=== PATIENT | male | born 1985 ===

== ENCOUNTER 2021-03-25 14:13 | Emergency (ER) | payer MEDICAID ==
[2021-03-25] MEDS ORDERED: Sodium Chloride 0.9% 10 ML Syringe FLUSH PRN (14:14)
[2021-03-25] MEDS ORDERED: Sodium Chloride 0.9% 2.5 ML Syringe FLUSH PRN (14:14)
--- NOTE | 2021-03-25 14:17 | EDM.PDOC ---
ED HPI GENERAL MEDICAL PROBLEM - General Time Seen by Provider: 03/25/21 14:14 - History of Present Illness INITIAL COMMENTS - FREE TEXT/NARRATIVE: Unknown male found down by PD. No ID or other information is known. Pt was found unresponsive with agonal respirations but a pulse by EMS. PT was given 4 IN narcan and 2 IV narcan with no response. Patient was then intubated he was given 250 of ketamine and 100 mg of rocuronium by EMS. On arrival he remains unresponsive. Further history unavailable. ED ROS GENERAL - Review of Systems Review Of Systems: Unable To Obtain Reason Not Obtained: Unresponsive ED EXAM, GENERAL - Physical Exam Exam: See Below Free Text/Narrative:: General Appearance: Intubated Skin: No rash HEENT: Normocephalic/atraumatic, sclera anicteric, mucous membranes moist, pupils midrange Neck: Normal range of motion Chest and Lungs: Bilateral breath sounds, clear to auscultation with bagging, old appearing contusion in the right upper parasternal region Cardiovascular: Mildly tachycardic rate and regular rhythm, no murmur Abdomen: Soft, non-tender Musculoskeletal: No edema or tenderness Neurologic: Unresponsive. However, patient already has rocuronium on board Psychiatric: Appropriate, cooperative #1 Interpretation EKG Date: 03/25/21 Time: 14:32 EKG Interpretation Comments: Sinus tachycardia rate of 128 with occasional PVC otherwise unremarkable no acute ischemia unremarkable intervals QRS duration 83 QTC duration 450 Course - Orders/Labs/Meds Orders: Active Orders 24 hr Category Date Time Status Cervical Spine wo Cont [CT] Stat Exams 03/25/21 14:35 Taken Head wo Cont [CT] Stat Exams 03/25/21 14:21 Taken BLOOD GAS ARTERIAL [BG] Stat Lab 03/25/21 14:15 Ordered Sodium Chloride 0.9% [Saline Flush] Med 03/25/21 14:14 Active 10 ml FLUSH ASDIRECTED PRN Sodium Chloride 0.9% [Saline Flush] Med 03/25/21 14:14 Active 2.5 ml FLUSH ASDIRECTED PRN Saline Lock Insert [OM.PC] Stat Oth 03/25/21 14:14 Ordered Medication Orders Sodium Chloride (Sodium Chloride 0.9% 10 Ml Syringe) 10 ml FLUSH ASDIRECTED PRN PRN Reason: Keep Vein Open Sodium Chloride (Sodium Chloride 0.9% 2.5 Ml Syringe) 2.5 ml FLUSH ASDIRECTED PRN PRN Reason: Keep Vein Open Labs: Laboratory Tests 03/25/21 03/25/21 03/25/21 Range/Units 14:10 14:10 14:10 WBC 9.01 (4.0-11.0) K/uL RBC 5.21 (4.50-5.90) M/uL Hgb 11.0 L (13.0-17.0) g/dL Hct 36.2 L (38.0-50.0) % MCV 69.5 L (80.0-98.0) fL MCH 21.1 L (27.0-32.0) pg MCHC 30.4 L (31.0-37.0) g/dL RDW Std Deviation 49.2 (28.0-62.0) fl RDW Coeff of Amee 22 H (11.0-15.0) % Plt Count 254 (150-400) K/uL Neut % (Auto) 64.2 (48.0-80.0) % Lymph % (Auto) 28.1 (16.0-40.0) % [place] % (Auto) 6.0 (0.0-15.0) % Eos % (Auto) 1.1 (0.0-7.0) % Baso % (Auto) 0.6 (0.0-1.5) % Neut # (Auto) 5.8 H (1.4-5.7) K/uL Lymph # (Auto) 2.5 H (0.6-2.4) K/uL [place] # (Auto) 0.5 (0.0-0.8) K/uL Eos # (Auto) 0.1 (0.0-0.7) K/uL Baso # (Auto) 0.1 (0.0-0.1) K/uL Nucleated RBC % 0.0 /100WBC Nucleated RBCs # 0 K/uL Lactate 2.1 H* (0.20-2.00) mmol/L Sodium 144 (136-148) mmol/L Potassium 4.0 (3.5-5.1) mmol/L Chloride 107 (98-107) mmol/L Carbon Dioxide 28.7 (21.0-32.0) mmol/L BUN 9 (7.0-18.0) mg/dL Creatinine 0.9 (0.8-1.3) mg/dL Est Cr Clr Drug Dosing TNP Estimated GFR (MDRD) > 60.0 ml/min Glucose 76 (74-106) mg/dL Calcium 7.6 L (8.5-10.1) mg/dL Magnesium 1.9 (1.8-2.4) mg/dL Total Bilirubin 0.6 (0.2-1.0) mg/dL AST 58 H (15-37) IU/L ALT 33 (14-63) IU/L Alkaline Phosphatase 75 (46-116) U/L Creatine Kinase 707 H (26-308) U/L Troponin I < 0.050 (0.000-0.056) ng/mL Total Protein 6.7 (6.4-8.2) g/dL Albumin 2.8 L (3.4-5.0) g/dL Globulin 3.9 (2.6-4.0) g/dL Albumin/Globulin Ratio 0.7 L (0.9-1.6) Urine Opiates Screen (NEGATIVE) Ur Oxycodone Screen (NEGATIVE) Urine Methadone Screen (NEGATIVE) Ur Barbiturates Screen (NEGATIVE) Ur Phencyclidine Scrn (NEGATIVE) Ur Amphetamine Screen (NEGATIVE) U Methamphetamines Scrn (NEGATIVE) U Benzodiazepines Scrn (NEGATIVE) U Cocaine Metab Screen (NEGATIVE) U Marijuana (THC) Screen (NEGATIVE) Ethyl Alcohol 269 mg/dL 03/25/21 Range/Units 14:14 WBC (4.0-11.0) K/uL RBC (4.50-5.90) M/uL Hgb (13.0-17.0) g/dL Hct (38.0-50.0) % MCV (80.0-98.0) fL MCH (27.0-32.0) pg MCHC (31.0-37.0) g/dL RDW Std Deviation (28.0-62.0) fl RDW Coeff of Amee (11.0-15.0) % Plt Count (150-400) K/uL Neut % (Auto) (48.0-80.0) % Lymph % (Auto) (16.0-40.0) % [place] % (Auto) (0.0-15.0) % Eos % (Auto) (0.0-7.0) % Baso % (Auto) (0.0-1.5) % Neut # (Auto) (1.4-5.7) K/uL Lymph # (Auto) (0.6-2.4) K/uL [place] # (Auto) (0.0-0.8) K/uL Eos # (Auto) (0.0-0.7) K/uL Baso # (Auto) (0.0-0.1) K/uL Nucleated RBC % /100WBC Nucleated RBCs # K/uL Lactate (0.20-2.00) mmol/L Sodium (136-148) mmol/L Potassium (3.5-5.1) mmol/L Chloride (98-107) mmol/L Carbon Dioxide (21.0-32.0) mmol/L BUN (7.0-18.0) mg/dL Creatinine (0.8-1.3) mg/dL Est Cr Clr Drug Dosing Estimated GFR (MDRD) ml/min Glucose (74-106) mg/dL Calcium (8.5-10.1) mg/dL Magnesium (1.8-2.4) mg/dL Total Bilirubin (0.2-1.0) mg/dL AST (15-37) IU/L ALT (14-63) IU/L Alkaline Phosphatase (46-116) U/L Creatine Kinase (26-308) U/L Troponin I (0.000-0.056) ng/mL Total Protein (6.4-8.2) g/dL Albumin (3.4-5.0) g/dL Globulin (2.6-4.0) g/dL Albumin/Globulin Ratio (0.9-1.6) Urine Opiates Screen NEGATIVE (NEGATIVE) Ur Oxycodone Screen NEGATIVE (NEGATIVE) Urine Methadone Screen NEGATIVE (NEGATIVE) Ur Barbiturates Screen NEGATIVE (NEGATIVE) Ur Phencyclidine Scrn NEGATIVE (NEGATIVE) Ur Amphetamine Screen NEGATIVE (NEGATIVE) U Methamphetamines Scrn NEGATIVE (NEGATIVE) U Benzodiazepines Scrn POSITIVE (NEGATIVE) U Cocaine Metab Screen NEGATIVE (NEGATIVE) U Marijuana (THC) Screen NEGATIVE (NEGATIVE) Ethyl Alcohol mg/dL Meds: Medications Generic Name Dose Route Start Last Admin Trade Name Freq PRN Reason Stop Dose Admin Sodium Chloride 10 ml 03/25/21 14:14 Sodium Chloride 0.9% 10 Ml Syringe FLUSH ASDIRECTED PRN Keep Vein Open Sodium Chloride 2.5 ml 03/25/21 14:14 Sodium Chloride 0.9% 2.5 Ml Syringe FLUSH ASDIRECTED PRN Keep Vein Open Discontinued Medications Generic Name Dose Route Start Last Admin Trade Name Lorraine PRN Reason Stop Dose Admin Propofol Confirm 03/25/21 14:28 Diprivan 100 Ml Administered 03/25/21 14:29 Dose 100 mls @ as directed .ROUTE .STK-MED ONE Departure - Departure Time of Disposition: 14:31 Disposition: DC/Tfer to [facility] 02 Clinical Impression: Altered mental status - Discharge Information *PRESCRIPTION DRUG MONITORING PROGRAM REVIEWED*: Not Applicable *COPY OF PRESCRIPTION DRUG MONITORING REPORT IN PATIENT DYLAN: Not Applicable Critical Care Note - Critical Care Note Total Time (mins): 40 - My Orders Last 24 Hours: My Active Orders 03/25/21 14:14 Sodium Chloride 0.9% [Saline Flush] 10 ml FLUSH ASDIRECTED PRN Sodium Chloride 0.9% [Saline Flush] 2.5 ml FLUSH ASDIRECTED PRN Saline Lock Insert [OM.PC] Stat 03/25/21 14:15 BLOOD GAS ARTERIAL [BG] Stat 03/25/21 14:21 Head wo Cont [CT] Stat 03/25/21 14:35 Cervical Spine wo Cont [CT] Stat - Assessment/Plan Last 24 Hours: My Active Orders 03/25/21 14:14 Sodium Chloride 0.9% [Saline Flush] 10 ml FLUSH ASDIRECTED PRN Sodium Chloride 0.9% [Saline Flush] 2.5 ml FLUSH ASDIRECTED PRN Saline Lock Insert [OM.PC] Stat 03/25/21 14:15 BLOOD GAS ARTERIAL [BG] Stat 03/25/21 14:21 Head wo Cont [CT] Stat 03/25/21 14:35 Cervical Spine wo Cont [CT] Stat Assessment:: Male of unclear age presents unresponsive history is very limited. Sepsis is a consideration though he is not profoundly tachycardic he has no signs of severe trauma alcohol intoxication is a consideration as he was found with a number of alcohol bottles around him reportedly. Drug use is a consideration as well primary ACS felt less likely. EKG is pending. Labs have been drawn patient discussed with the ED at [facility] my not and patient has been accepted for transfer by Dr. Phelps. Patient has been placed in c-collar and patient will receive a noncontrast CT head and C-spine I will evaluate the CT of the head preliminarily and call ahead to my not if I see anything significantly abnormal. 1502: My preliminary interpretation of the CT scan of the brain reveals no large intracranial hemorrhage. Patient will be allowed to proceed to [place]. Labs t hus far relatively unremarkable there is a very minimal lactic acid of 2.1 but no fever no signs of sepsis. Alcohol level is elevated but only 270. VS remain stable. Patient will be placed on propofol for the flight.
[2021-03-25] MEDS ORDERED: propofoL 100 ML IV SCH (14:28)
[2021-03-25] MEDS ORDERED: propofoL 100 ML ONE (14:28)
--- NOTE | 2021-03-25 14:54 | CR ---
Indication: Intubation Technique: Chest 1 view Comparison: None Findings/Impression: Cardiovascular and mediastinum: Endotracheal tube is 3 cm above the hailey. NG tube is seen into the stomach. Heart size and pulmonary vasculature are within normal limits. Lungs and pleural space: Atelectasis favored over infiltrate in the left perihilar region. Remainder of the lungs and pleural spaces are clear. No pneumothorax. Bones and soft tissues: No acute findings. Dictated by Marcelino Holloway MD @ 03/25/2021 2:54:[address] Marcelino Holloway @ Mar 25 2021 2:54PM
[2021-03-25 14:55] LABS: BLOOD UREA NITROGEN,BUN 9 mg/dL (7.0-18.0); CARBON DIOXIDE,CO2 28.7 mmol/L (21.0-32.0); CHLORIDE,CL 107 mmol/L (98-107); GLUCOSE RANDOM 76 mg/dL (74-106); SODIUM,NA 144 mmol/L (136-148)
--- NOTE | 2021-03-25 15:17 | CT ---
INDICATION: Unresponsive TECHNIQUE: CT head without contrast. COMPARISON: None FINDINGS: CSF spaces: Within normal limits for age. Brain parenchyma: The velasquez-white differentiation is normal. No sign of mass, hemorrhage, or midline shift. Skull base and calvarium: The visualized paranasal sinuses and mastoid air cells demonstrate no acute or significant findings. The visualized orbits are grossly unremarkable. No skull fractures. IMPRESSION: Unremarkable noncontrast head CT. Please note that all CT scans at this facility use dose modulation, iterative reconstruction, and/or weight-based dosing when appropriate to reduce radiation dose to as low as reasonably achievable. Dictated by Deangelo Espana MD @ 03/25/2021 3:16:[address] Deangelo Espana @ Mar 25 2021 3:16PM
--- NOTE | 2021-03-25 15:26 | CT ---
INDICATION: Unresponsive TECHNIQUE: CT cervical spine without contrast. COMPARISON: None FINDINGS: Difficult to evaluate T1 and T2 due to motion artifact. vertebral alignment: Alignment is normal. Vertebrae: There are no fractures or suspicious bony lesions. Discs and facet joints: Disc spaces and facets are within normal limits. Extraspinal findings: Prevertebral soft tissues, visualized airway, and visualized lungs are unremarkable. IMPRESSION: Atraumatic appearance of the cervical spine. Difficult evaluate T1-T2 due to motion artifact. Please note that all CT scans at this facility use dose modulation, iterative reconstruction, and/or weight-based dosing when appropriate to reduce radiation dose to as low as reasonably achievable. Dictated by Deangelo Espana MD @ 03/25/2021 3:25:[address] Deangelo Espana @ Mar 25 2021 3:25PM
== END 2021-03-25 15:15 ==
LOC: MW.ED 14:13 → EDBD 14:13 → MW.ED 15:15
DX: R41.82 Altered mental status, unspecified (principal)
CPT/HCPCS: 36415; 43752; 51702; 70450; 70450-26; 71045; 71045-26; 72125; 72125-26; 80053; 80305-QW; 80307; 82550; 83605; 83735; 84484; 85025; 93005; 99285-25; 99291